=== PATIENT | male | born 1950 | race Caucasian/White ===

== ENCOUNTER 2023-10-26 10:41 | Inpatient (IN) | payer MEDICARE ==
[~2023-10-26] VITALS: Ht 172.7 cm; Wt 61.4 kg
[2023-10-26] MEDS: MORPHINE SULFATE 4 MG/ML INJ (FOR IV/IM USE) IV STA (11:45)
[2023-10-26] MEDS: SODIUM CHLORIDE 0.9% 1,000 ML IV ONE (11:45)
[2023-10-26] MEDS: HYDRALAZINE 20MG/ML VIAL IV ONE (13:05)
[2023-10-26 13:11] LABS: BASOPHILS % 0.3 % (0.0-2.0); DIFFERENTIAL COMMENT 0; HEMATOCRIT. 43.9 % (42.0-52.0); HEMOGLOBIN. 14.8 g/dL (14.0-18.0); LYMPHOCYTES % 7.5 % (20.0-50.0); MEAN CORPUSCULAR HEMOGLOBIN 33.9 pg (28.0-32.0); MEAN CORPUSCULAR HGB CONC 33.8 g/dL (31.0-37.0); MEAN CORPUSCULAR VOLUME 100.4 fL (80.0-94.0); MEAN PLATELET VOLUME 8.2 fl (7.4-10.4); MONOCYTES % 5.3 % (2.0-8.0); NEUTROPHILS % 86.9 % (40.0-76.0); PLATELET 199 x1000/uL (130-400); RED BLOOD CELL COUNT 4.37 mill/uL (4.7-6.1); WHITE BLOOD COUNT 12.8 x1000/uL (4.5-11.0)
[2023-10-26 13:20] LABS: CHLORIDE 108 mEq/L (98-107); SODIUM 146 mEq/L (136-145)
[2023-10-26 13:21] LABS: CALCIUM 9.8 mg/dL (8.7-10.4); CARBON DIOXIDE 27 mEq/L (21-32); PROTHROMBIN TIME 11.1 sec (9.6-11.0)
[2023-10-26 13:26] LABS: CREATININE 0.6 mg/dL (0.6-1.3); GLUCOSE 100 mg/dL (70-105); UREA NITROGEN BLOOD 10 mg/dL (9-23)
[2023-10-26 13:32] LABS: POTASSIUM 2.7 mEq/L (3.5-5.1); TROPONIN I HIGH SENSITIVITY 69 ng/L (3.0-53)
[2023-10-26] MEDS: NA PHOS,M-B/NA PHOS,DI-BA ENEMA 118ML PR ONE (13:39)
[2023-10-26] MEDS: POTASSIUM CHLORIDE 20MEQ TABLET SR PO ONE (14:37)
[2023-10-26 16:19] LABS: TROPONIN I HIGH SENSITIVITY 94 ng/L (3.0-53)
[2023-10-26 17:00] VITALS: BP 112/57; PULSE 76; RESP 19; TEMP 97.9
[2023-10-26] MEDS ORDERED: CLONIDINE 0.1MG TABLET PO PRN (17:30)
[2023-10-26] MEDS ORDERED: ACETAMINOPHEN 325MG TABLET PO PRN (17:30)
[2023-10-26] MEDS ORDERED: DIPHENHYDRAMINE 50MG/ML VIAL IV PRN (17:30)
[2023-10-26] MEDS ORDERED: HYDRALAZINE 20MG/ML VIAL IV PRN (17:30)
[2023-10-26] MEDS ORDERED: MAGNESIUM/ALUMINUM HYDROXIDE/SIMETHICONE 30ML UDC PO PRN (17:30)
[2023-10-26] MEDS ORDERED: ONDANSETRON HCL 4MG/2ML INJ IV PRN (17:30)
[2023-10-26 18:08] LABS: THYROID STIMULATING HORMONE 1.15 uIU/mL (0.55-4.78)
[2023-10-26] MEDS: SODIUM CHLORIDE 0.9% 1,000 ML IV SCH (18:11)
[2023-10-26] MEDS: POTASSIUM CHLORIDE 20MEQ TABLET SR PO SCH (18:11)
[2023-10-26] MEDS: KETOROLAC 30MG/ML VIAL IV PRN (18:28)
[2023-10-26 20:00] VITALS: BP 136/81; PULSE 86; RESP 16; RESP 18; TEMP 97.9
[2023-10-26] MEDS: CHLORDIAZEPOXIDE 25MG CAPSULE PO SCH (22:11)
[2023-10-26] MEDS: LACTULOSE 20G/30ML UDC PO SCH (22:12)
[2023-10-26] MEDS: AMLODIPINE 2.5MG TABLET PO SCH (22:12)
[2023-10-26] MEDS: FOLIC ACID 1 MG, THIAMINE HCL 100 MG, MVI, ADULT NO.1 10 ML in DEXTROSE 5% WATER 1,000 ML IV NR (23:08)
[2023-10-27] VITALS: BP_SYST 118; BP_SYST 128; BP_DIAS 58; BP_DIAS 73; PULSE 68; PULSE 71; RESP 16; RESP 18; TEMP 97.4; TEMP 98.1
[2023-10-27] MEDS: ZOLPIDEM TARTRATE 5MG TABLET PO PRN (00:41)
[2023-10-27 04:00] VITALS: BP 115/55; PULSE 62; RESP 16; RESP 17; TEMP 97.5
[2023-10-27 07:06] LABS: BASOPHILS % 0.3 % (0.0-2.0); DIFFERENTIAL COMMENT 0; EOSINOPHILS % 0.6 % (0.0-5.0); HEMATOCRIT. 39.2 % (42.0-52.0); HEMOGLOBIN. 13.4 g/dL (14.0-18.0); LYMPHOCYTES % 11.9 % (20.0-50.0); MEAN CORPUSCULAR HEMOGLOBIN 34.6 pg (28.0-32.0); MEAN CORPUSCULAR HGB CONC 34.2 g/dL (31.0-37.0); MEAN CORPUSCULAR VOLUME 101.2 fL (80.0-94.0); MEAN PLATELET VOLUME 8.7 fl (7.4-10.4); MONOCYTES % 8.1 % (2.0-8.0); NEUTROPHILS % 79.1 % (40.0-76.0); PLATELET 178 x1000/uL (130-400); RED BLOOD CELL COUNT 3.88 mill/uL (4.7-6.1); RED CELL DISTRIBUTION WIDTH 13.1 % (11.6-14.6); WHITE BLOOD COUNT 9.5 x1000/uL (4.5-11.0)
[2023-10-27 07:18] LABS: CHLORIDE 111 mEq/L (98-107); POTASSIUM 4.3 mEq/L (3.5-5.1); SODIUM 142 mEq/L (136-145)
[2023-10-27 07:19] LABS: CALCIUM 9.4 mg/dL (8.7-10.4); CARBON DIOXIDE 25 mEq/L (21-32)
[2023-10-27 07:24] LABS: GLUCOSE 100 mg/dL (70-105); UREA NITROGEN BLOOD 15 mg/dL (9-23)
[2023-10-27 07:26] LABS: PHOSPHORUS 1.3 mg/dL (2.5-4.9)
[2023-10-27 07:48] VITALS: BP 116/64; PULSE 63; RESP 19; TEMP 97.7
[2023-10-27 08:24] LABS: CREATININE 1.6 mg/dL (0.6-1.3)
[2023-10-27 12:00] VITALS: BP 111/58; PULSE 64; RESP 15; TEMP 98.6
[2023-10-27] MEDS ORDERED: SODIUM PHOSPHATE 30 MMOL in DEXT 5% WATER 490 ML IV ONE (14:00)
[2023-10-27] MEDS: MAGNESIUM 2 G PREMIX 50 ML IV SCH (14:25)
[2023-10-27 16:00] VITALS: BP 112/53; PULSE 64; RESP 19; TEMP 97.2
[2023-10-27] MEDS: CHLORDIAZEPOXIDE 25MG CAPSULE PO SCH (18:10)
[2023-10-27 18:16] LABS: CLARITY URINE CLOUDY (CLEAR); COLOR URINE ORANGE (YELLOW); GLUCOSE URINE NEGATIVE (NEGATIVE); KETONES URINE NEGATIVE (NEGATIVE); LEUKOCYTE ESTERASE URINE 1+ (NEGATIVE); NITRITE URINE NEGATIVE (NEGATIVE); OCCULT BLOOD URINE 3+ (NEGATIVE); PH URINE 5.5 (4.5-8.0); PROTEIN URINE 2+ (NEGATIVE); SPECIFIC GRAVITY URINE 1.018 (1.005-1.030)
[2023-10-27] MEDS: POTASSIUM PHOSPHATE 30 MMOL in DEXT 5% WATER 490 ML IV NR (18:42)
[2023-10-27 18:49] LABS: BACTERIA URINE TRACE; RBC URINE TNTC /hpf (0-2); SQUAMOUS EPITHELIAL CELL URINE FEW /lpf (RARE/1+)
[2023-10-27 20:00] VITALS: BP_SYST 119; BP_SYST 126; BP_DIAS 49; BP_DIAS 62; PULSE 58; PULSE 64; RESP 16; RESP 19; TEMP 97.7; TEMP 98.1
[2023-10-28] VITALS (7 sets, daily range): BP systolic 95–146; BP diastolic 41–80; PULSE 58–79; RESP 15–19; TEMP 97.4–98.2
[2023-10-28 06:11] LABS: CARBON DIOXIDE 28 mEq/L (21-32); CHLORIDE 110 mEq/L (98-107); POTASSIUM 4.4 mEq/L (3.5-5.1); SODIUM 142 mEq/L (136-145)
[2023-10-28 06:12] LABS: CALCIUM 8.5 mg/dL (8.7-10.4)
[2023-10-28 06:17] LABS: CREATININE 0.7 mg/dL (0.6-1.3); GLUCOSE 101 mg/dL (70-105); UREA NITROGEN BLOOD 10 mg/dL (9-23)
[2023-10-28 06:19] LABS: PHOSPHORUS 3.3 mg/dL (2.5-4.9)
[2023-10-28] MEDS: TAMSULOSIN HCL 0.4MG SR CAPSULE PO SCH (08:36)
[2023-10-28] MEDS ORDERED: CHLORDIAZEPOXIDE 25MG CAPSULE PO PRN (17:00)
[2023-10-29] VITALS (7 sets, daily range): BP systolic 112–183; BP diastolic 57–80; PULSE 58–74; RESP 16–19; TEMP 97.7–98.4; O2SAT 96–98
[2023-10-30] VITALS: BP 101/65; PULSE 69; RESP 19; TEMP 97.7
[2023-10-30 04:00] VITALS: BP 138/57; PULSE 66; RESP 19; TEMP 98.7
[2023-10-30 08:00] VITALS: BP 144/63; PULSE 67; RESP 18; TEMP 99.1
[2023-10-30 12:00] VITALS: BP 98/48; PULSE 63; RESP 19; TEMP 97.8
[2023-10-31 04:00] VITALS: BP 125/57; PULSE 59; RESP 18; TEMP 97.9
[2023-10-31 08:00] VITALS: BP 133/60; PULSE 63; RESP 17; TEMP 97.4
[2023-10-31 12:00] VITALS: BP 116/55; PULSE 65; RESP 18; TEMP 97
[2023-10-31 16:00] VITALS: BP 100/50; PULSE 67; RESP 17; TEMP 96.9
[2023-10-31 20:00] VITALS: BP 102/50; PULSE 71; RESP 18; TEMP 97.1
[2023-11-01] VITALS: BP 117/44; PULSE 63; RESP 18; TEMP 98.2
[2023-11-01] MEDS: ACETAMINOPHEN 325MG TABLET PO PRN (00:04)
[2023-11-01 04:00] VITALS: BP 97/40; PULSE 57; RESP 18; TEMP 97.1
[2023-11-01 08:00] VITALS: BP 112/57; PULSE 59; RESP 18; TEMP 97.7
[2023-11-01] MEDS ORDERED: TAMS-11 MT (08:28)
[2023-11-01] MEDS ORDERED: DUTA0.5C2 MT (08:28)
[2023-11-01 12:00] VITALS: BP 99/62; PULSE 65; RESP 18; TEMP 98.6
== END 2023-11-01 11:55 | disposition home health service (06) | DRG 389 ==
LOC: ER 10:41 → EDBEDREQTM 15:28 → EDBEDREQ 15:28 → 7EST 16:56
PROVIDERS: ADMIT Internal Medicine; ATTEND Internal Medicine
DX: K56.41 Fecal impaction (principal); F10.239 Alcohol dependence with withdrawal, unspecified; E87.6 Hypokalemia; E78.00 Pure hypercholesterolemia, unspecified; I10 Essential (primary) hypertension; E83.39 Other disorders of phosphorus metabolism; E83.42 Hypomagnesemia; N32.0 Bladder-neck obstruction; N40.1 Benign prostatic hyperplasia with lower urinary tract symptoms; Z79.899 Other long term (current) drug therapy; Z88.6 Allergy status to analgesic agent
CPT/HCPCS: 36415; 71045; 74018; 74176; 80048; 81003; 83735; 84100; 84153; 84443; 84484; 85025; 93005; 97162; 99285; J0360; J1885; J2270; J3411; J3475; J3490; J7030; J7060; J7070; A4315